=== PATIENT | female | born 1960 | race Two or more races ===

== ENCOUNTER 2021-05-12 03:01 | Emergency (ER) | payer MEDICAID ==
[~2021-05-12] VITALS: Ht 162.6 cm; Wt 78.0 kg
--- NOTE | 2021-05-12 03:10 | NUR ---
PT BIB [facility] 88 FROM HOME C/O PALPITATIONS, STATED SHE HAD A BRAND LEAD PLACED Saturday05/10/21 AT [facility]. DENIES CP. NO SOB OR LABORED BREATHING. NO N/V/D.
[2021-05-12 03:35] LABS: HEMATOCRIT 34.7 % (31.2-41.9); PLATELET COUNT (AUTO) 245 K/uL (179-408)
[2021-05-12 03:41] LABS: CREATININE 0.9 mg/dL (0.6-1.3); POTASSIUM 3.8 mmol/L (3.5-5.1)
[2021-05-12 03:59] LABS: BILIRUBIN,DIRECT 0.2 mg/dL (0.0-0.2); BILIRUBIN,TOTAL 0.5 mg/dL (0.2-1.0); MAGNESIUM 1.8 mg/dL (1.8-2.4); TOTAL PROTEIN, SERUM 6.9 g/dL (6.4-8.2)
[2021-05-12 04:00] LABS: THYROID STIMULATING HORMONE 3.886 mIU/mL (0.358-3.740)
[2021-05-12] MEDS ORDERED: MAGNESIUM SULFATE/D5W 100 ML ONE (05:13)
[2021-05-12] MEDS ORDERED: MAGNESIUM SULFATE/D5W 100 ML IV SCH (05:15)
[2021-05-12] MEDS ORDERED: POTASSIUM CHLORIDE 20 MEQ TAB.PRT.SR PO ONE (05:45)
[2021-05-12] MEDS ORDERED: POTASSIUM CHLORIDE 20 MEQ TAB.PRT.SR ONE (05:58)
--- NOTE | 2021-05-12 06:35 | NUR ---
Patient discharged to home in stable condition. Written and verbal after care instructions given. Patient verbalizes understanding of instructions. Stressed follow up or return to ER for worsening s/s. All belongings with patient.
[2021-05-12 06:36] VITALS: BP 147/98
[2021-05-14] MEDS ORDERED: LORAZEPAM 1 MG TABLET ONE (01:44)
== END 2021-05-12 06:35 | disposition home or self-care (01) ==
LOC: ER 03:06
DX: R00.2 Palpitations (principal); Z88.6 Allergy status to analgesic agent; Z86.718 Personal history of other venous thrombosis and embolism; Z20.822 Contact with and (suspected) exposure to COVID-19
CPT/HCPCS: 36415; 71045; 80048; 80076; 83735; 83880; 84443; 84484; 85025; 85379; 85730; 87426; 93005; 93971; 96365; 99285; J3475; 70030-TC; A4663; J7050

== ENCOUNTER 2021-05-14 01:16 | Emergency (ER) | payer MEDICAID ==
[~2021-05-14] VITALS: Ht 162.6 cm; Wt 78.0 kg
--- NOTE | 2021-05-14 01:29 | NUR ---
Dr. Pichardo at bedside for MSE.
--- NOTE | 2021-05-14 01:35 | NUR ---
Pt bib [facility] 88 from home for heart palpitations. Denies chest pain, states feels like she has chest pressure. Pt. vss, ekg was nsr in field. Pt was here for same issue 2 days ago. Pt under care of a sports bookmaker at [facility], pt is wearing a heart monitor. Pt. states she was recently dx with atrial fibrillation and has hx htn.
[2021-05-14] MEDS ORDERED: AMLO10TA4 PO (01:43)
[2021-05-14 01:45] LABS: HEMATOCRIT 34.9 % (31.2-41.9); MEAN CORPUSCULAR HEMOGLOBIN 30.5 uug (24.7-32.8); MEAN CORPUSCULAR VOLUME 90.2 fL (75.5-95.3); PLATELET COUNT (AUTO) 264 K/uL (179-408)
[2021-05-14 01:52] LABS: CREATININE 0.8 mg/dL (0.6-1.3); POTASSIUM 3.7 mmol/L (3.5-5.1)
[2021-05-14] MEDS ORDERED: THYR30TA2 PO (02:25)
[2021-05-14] MEDS ORDERED: LORA-259 PO (02:25)
[2021-05-14] MEDS ORDERED: LORAZEPAM 0.5 MG TABLET SL ONE (02:30)
[2021-05-14] MEDS ORDERED: CYANOCOBALAMIN 1000 MCG/ML VIAL IM ONE (03:30)
[2021-05-14] MEDS ORDERED: CYANOCOBALAMIN 1000 MCG/ML VIAL ONE (03:34)
--- NOTE | 2021-05-14 04:04 | NUR ---
Patient discharged to home in stable condition. Written and verbal after care instructions given. Patient verbalizes understanding of instructions. Stressed follow up or return to ER for worsening s/s. Pt walks w/ steady gait. No signs of distress. VSS. All belongings taken.
[2021-05-14 04:05] VITALS: BP 135/73
== END 2021-05-14 04:06 | disposition home or self-care (01) ==
LOC: ER 01:17
DX: F45.8 Other somatoform disorders (principal); R00.2 Palpitations; E03.9 Hypothyroidism, unspecified; E53.8 Deficiency of other specified B group vitamins; Z98.84 Bariatric surgery status; E83.42 Hypomagnesemia; F41.9 Anxiety disorder, unspecified; Z79.899 Other long term (current) drug therapy
CPT/HCPCS: 36415; 80048; 82607; 84484; 85025; 85379; 93005; 99284; J3420; 70030-TC; A4663

== ENCOUNTER 2024-01-17 08:27 | Emergency (ER) | payer MEDICAID ==
[~2024-01-17] VITALS: Ht 162.6 cm; Wt 74.4 kg
[~2024-01-17 08:27] MED LIST: AMLO10TA4 PO; LORA-259 PO; THYR30TA2 PO
[2024-01-17] MEDS: IV NORMAL SALINE 1000 ML BAG IV ONE (09:14)
[2024-01-17 09:22] LABS: BASOPHILS # (AUTO) 0.1 K/UL (0.0-0.2); BASOPHILS % (AUTO) 1.5 % (0.0-2.0); EOSINOPHILS # (AUTO) 0.2 K/uL (0.0-0.7); EOSINOPHILS % (AUTO) 2.7 % (0.0-7.0); HEMATOCRIT 38.7 % (31.2-41.9); HEMOGLOBIN 12.9 g/dL (10.9-14.3); LYMPHOCYTES # (AUTO) 1.9 K/uL (0.8-4.8); LYMPHOCYTES % (AUTO) 24.8 % (20.5-51.5); MEAN CORPUSCULAR HEMOGLOBIN 27.4 uug (24.7-32.8); MEAN CORPUSCULAR HGB CONC 33 g/dL (32.3-35.6); MEAN CORPUSCULAR VOLUME 82.5 fL (75.5-95.3); MONOCYTES # (AUTO) 0.7 K/uL (0.1-1.30); NEUTROPHILS # (AUTO) 4.8 K/uL (1.8-8.9); PLATELET COUNT (AUTO) 215 K/uL (179-408); RED BLOOD CELL COUNT(AUTO) 4.69 MIL/uL (3.63-4.92); WHITE BLOOD COUNT (AUTO) 7.7 K/uL (3.8-11.8)
[2024-01-17 09:23] LABS: DIFFERENTIAL COMMENT 1
[2024-01-17 09:33] LABS: CALCIUM 9.4 mg/dL (8.5-10.1); CREATININE 0.8 mg/dL (0.6-1.3); POTASSIUM 3.6 mmol/L (3.5-5.1)
[2024-01-17 09:38] LABS: ALBUMIN 3.3 g/dL (3.4-5.0); BILIRUBIN,DIRECT 0.1 mg/dL (0.0-0.2); BILIRUBIN,TOTAL 0.5 mg/dL (0.2-1.0); TOTAL PROTEIN, SERUM 7.4 g/dL (6.4-8.2)
[2024-01-17 10:05] LABS: MAGNESIUM 1.9 mg/dL (1.8-2.4)
[2024-01-17] MEDS ORDERED: MAG HYDROX/AL HYDROX/SIMETH 30 ML LIQUID UDC ONE (10:27)
[2024-01-17] MEDS: MAG HYDROX/AL HYDROX/SIMETH 30 ML LIQUID UDC PO ONE (10:29)
[2024-01-17 11:28] VITALS: BP 134/75; TEMP 98.3; O2SAT 97
== END 2024-01-17 11:52 | disposition home or self-care (01) ==
LOC: ER 08:27
DX: K21.9 Gastro-esophageal reflux disease without esophagitis (principal); E46 Unspecified protein-calorie malnutrition; I48.91 Unspecified atrial fibrillation; Z79.899 Other long term (current) drug therapy; Z88.5 Allergy status to narcotic agent; Z68.28 Body mass index [BMI] 28.0-28.9, adult
CPT/HCPCS: 99284; 96360; 80076; 80048; 82607; 83550; 83690; 83735; 85025; 36415; 74021; J7040 ×2; A4606; A4663